=== PATIENT | female | born 1950 | race Caucasian/White ===

== ENCOUNTER → 2024-10-15 | Outpatient (CLI) | payer MEDICARE, OTHER, SELFPAY ==
--- NOTE | 2024-10-15 18:08 | CT_ITS ---
PROCEDURE: LOW DOSE CT LUNG SCREENING 10/15/2024 REASON FOR EXAM: NICOTINE DEPENDENCE TECHNIQUE: LOW DOSE CT LUNG SCREENING Coronal and Sagittal reconstruction series were provided. One or more dose reduction techniques were used (e.g., Automated exposure control, adjustment of the mA and/or kV according to patient size, use of iterative reconstruction technique). REFERENCE LINK: [facility] Lung-RADS RADIATION DOSE SUMMARY: CTDlvol: 4 mGy DLP: 136 mGycm COMPARISON: No FINDINGS: Central airways are patent. Under aerated bases. Small apical scarring. Mild emphysema. No consolidation, effusion, or pneumothorax. On the left, series 2, image 96, there is a superior segment lower lobe rounded density, measuring approximately 1.2 x 1.4 cm, which probably represents rounded atelectasis. Lung mass not excluded. On the right, 2 image 175, 3 mm noncalcified lower lobe nodule. Unremarkable base of neck and axilla. Thoracic spine degeneration. Normal heart size. No acute vascular pathology. No acute chest wall findings. No acute upper abdominal findings. CT/Low Dose CT Lung Screening IMPRESSION: There is a superior segment, left lower lobe rounded density, strongly favoring rounded atelectasis. Lung mass not completely excluded. Recommend three-month follow up imaging. 3 mm noncalcified right lower lobe nodule. Lung-RADS Category: 4A Other Significant Findings: Reading [facility]
== END | disposition home or self-care (01) ==
LOC: CT 18:01
DX: Z12.2 Encounter for screening for malignant neoplasm of respiratory organs (principal); Z87.891 Personal history of nicotine dependence
CPT/HCPCS: 71271